=== PATIENT | female | born 1950 | race Hispanic/Latino ===

== ENCOUNTER 2022-05-29 15:34 | Emergency (ER) | payer OTHER ==
[~2022-05-29] VITALS: Ht 167.6 cm; Wt 95.3 kg
[2022-05-29 16:07] LABS: BASOPHILS # (AUTO) 0.1 (0.0-0.1); BASOPHILS % 0.7 % (0.0-1.0); EOSINOPHILS # (AUTO) 0.2 (0.0-0.4); EOSINOPHILS % 2.4 % (0.0-6.0); HEMATOCRIT 38.2 % (34.2-44.1); HEMOGLOBIN 13.1 g/dL (12.0-16.0); LYMPHOCYTES # (AUTO) 1.7 (1.0-3.2); LYMPHOCYTES % 24.4 % (18.0-39.1); MEAN CORPUSCULAR HEMOGLOBIN 28.9 pg (28-32); MEAN CORPUSCULAR HGB CONC 34.3 g/dL (31-35); MEAN CORPUSCULAR VOLUME 84.1 fL (81-99); MONOCYTES # (AUTO) 0.4 (0.2-0.8); MONOCYTES % 5.3 % (4.4-11.3); NEUTROPHILS # (AUTO) 4.7 (2.1-6.9); NEUTROPHILS % 65.8 % (38.7-80.0); PLATELET COUNT 234 x10e3/uL (140-360); RED BLOOD COUNT 4.54 x10e6/uL (3.6-5.1); RED CELL DISTRIBUTION WIDTH 12.7 % (11.7-14.4)
[2022-05-29 16:32] LABS: ALBUMIN/GLOBULIN RATIO 1.1 (0.8-2.0); CALCIUM 9.4 mg/dL (8.4-10.2); CREATININE, SERUM 0.89 mg/dL (0.57-1.11)
[2022-05-29] MEDS ORDERED: ALBUTEROL/IPRATROPIUM 3 ML NEB NEB ONE (17:15)
[2022-05-29] MEDS ORDERED: METHYLPREDNISOLONE SOD SUCC 125 MG/2ML VIAL IV ONE (17:15)
[2022-05-29] MEDS ORDERED: ALBUTEROL2.5 MG/0.5 PO (17:19)
[2022-05-29] MEDS ORDERED: DOXYCYCLINE HY100 MG PO (17:19)
[2022-05-29] MEDS ORDERED: PREDNISONE50 MG PO (17:19)
[2022-05-29 18:14] VITALS: BP 122/68
== END 2022-05-29 18:02 | disposition home or self-care (01) ==
LOC: ER 15:36
DX: R05.9 Cough, unspecified (principal); J18.9 Pneumonia, unspecified organism; J40 Bronchitis, not specified as acute or chronic; Z85.3 Personal history of malignant neoplasm of breast; Z85.528 Personal history of other malignant neoplasm of kidney
CPT/HCPCS: 36415; 71045; 80053; 84484; 85025; 93005; 94640; 94799; 99284; J2930; U0002

== ENCOUNTER 2022-08-07 08:14 | Emergency (ER) | payer MEDICARE, OTHER ==
[~2022-08-07] VITALS: Ht 167.6 cm; Wt 95.3 kg
[~2022-08-07 08:14] MED LIST: ALBUTEROL2.5 MG/0.5 PO; DOXYCYCLINE HY100 MG PO; PREDNISONE50 MG PO
[2022-08-07 08:15] VITALS: O2SAT 99
[2022-08-07] MEDS ORDERED: AZITHROMYCIN250 MG PO (08:26)
== END 2022-08-07 08:36 | disposition home or self-care (01) ==
LOC: ER 08:24
DX: H92.01 Otalgia, right ear (principal); H61.21 Impacted cerumen, right ear; Z85.3 Personal history of malignant neoplasm of breast; Z85.528 Personal history of other malignant neoplasm of kidney
CPT/HCPCS: 99283

== ENCOUNTER → 2023-09-10 | Outpatient (REF) | payer OTHER ==
[~2023-09-10] MED LIST changes: +AZITHROMYCIN250 MG PO; +IOPAMIDOL 370 MG/ML 100 ML INFUS..BTL INJ ONE; +SODIUM CHLORIDE 0.9% 100 ML ONE
== END ==
LOC: CT 07:02
PROVIDERS: ATTEND Internal Medicine
DX: I71.20 Thoracic aortic aneurysm, without rupture, unspecified (principal)
CPT/HCPCS: 36415; 71275; 82565; 84520; J7050; Q9967